=== PATIENT | female | born 1950 | race Caucasian/White ===

== ENCOUNTER → 2016-05-28 | Outpatient (CLI) | payer MEDICAID ==
[2016-04-19 11:46] VITALS: BP 128/83
[2016-05-28 15:27] LABS: CREATININE 0.73 mg/dL (0.55-1.02)
== END ==
LOC: LAB 14:55
PROVIDERS: ATTEND Orthopaedic Surgery
DX: M25.561 Pain in right knee (principal); M17.11 Unilateral primary osteoarthritis, right knee; C41.9 Malignant neoplasm of bone and articular cartilage, unspecified
CPT/HCPCS: 36415; 82565; 84520

== ENCOUNTER 2016-06-05 13:37 | Emergency (ER) | payer MEDICAID ==
[2016-06-05 13:43] VITALS: BP 144/85; BMI 25.4
[2016-06-05] MEDS ORDERED: ZOFRAN INJ 4 MG VIAL IM ONE (14:03)
[2016-06-05] MEDS ORDERED: DEMEROL INJ IM ONE (14:03)
--- NOTE | 2016-06-05 14:05 | DR.GENAD ---
HPI - PCP Primary Care Physician: DR. MATOS - HPI Comment HPI Comment: PATIENT HAVE LYMPHOMA TAKING CHEMOTHERAPY. INITIALLY 4 TIMES WEEKLY. NOW ONCE EVERY 2 MONTHS. DUE NEXT FRIDAY. RECENT FRACTURE SHOULDER, BONE METERSTASIS WAS SUSPECTED. PENDING MRI. SWELLING AND PAIN NOTED IN RIGHT LEG YESTERDAY. WORSE TODAY. NO TRAUMA. MEDICATION FOR PAIN LORTAB 5MG IS NOT RELIEVING HER PAIN. SHE IS ON COUMADIN. - Complaint/Symptoms Chief Complaint Doctors Comments: PAIN AND SWELLING RIGHT LEG AND FOOT. Chief Complaint:: PAIN IN RIGHT LEG AND FOOT IS SWOLLEN. - Nurses notes reviewed Nurses Notes Review: Yes - Source History Provided: Patient - Mode of Arrival Mode of Arrival: Wheelchair - Timing Onset of Chief Complaint: 06/04/16 Came on: Suddenly - Duration Duration: Constant Duration: Days - Severity Severity: Moderate PMH - PMH Past Medical History: Yes Past Medical History: Dyslipidemia, Hypertension Past Surgical History: Yes Surgical History: Cholecystectomy - Family History History of Family Medical Conditions: Yes Family Medical History: Hypertension - Social History Does patient currently use any type of tobacco product: No Have you used tobacco products in the last 12 months: No Type of Tobacco Use: None Does any household member use tobacco: No Alcohol Use: None Do you use any recreational Drugs:: No Lives With: Family Lives Where: Home - infectious screening In the last 2 months have you had wt loss of >10#?: NO Have you had fever, night sweats or hemotysis?: No Have you traveled outside the country in the last 6 months?: No Isolation: Standard ROS - Review of Systems Constitutional: Weakness, Fatigue. negative: Chills, Fever Eyes: No Symptoms Reported. negative: Discharge ENTM: No Symptoms Reported Respiratoy: Short of Breath (ON EXERTION) Cardiovascular: No Symptoms Reported Gastrointestinal/Abdominal: No Symptoms Reported Genitourinary: No Symptoms Reported Neurological: No Symptoms Reported Musculoskeletal: Back Pain, Leg, Knee, Ankle Integumentary: No Symptoms Reported Hematologic/Lymphatic: No Symptoms Reported Endocrine: No Symptoms Reported All Other Systems: Reviewed and Negative PE - Vital Signs Vitals: Temperature 98.2 F Pulse Rate 110 Respiratory Rate 20 Blood Pressure 144/85 O2 Sat by Pulse Oximetry 100 - General Limitations: No Limitations General Appearance: Alert - Head Head Exam: Normal Inspection - Eyes Eye exam: Normal Appearance - ENT ENT Exam: Normal External Ear Exam External Ear Exam: Normal External Inspection TM/Canal Exam: Bilateral Normal Nose Exam: Normal Nose Exam Mouth Exam: Normal Inspection Throat Exam: Normal Inspection - Neck Neck Exam: Normal Inspection - Chest Chest Inspection: Symmetric Chest Wall Rise - Respiratory Respiratory Exam: Normal Lung Sounds Bilat Respiratory Exam: Bilateral Clear to Auscultation - Cardiovascular Cardiovascular Exam: Regular Rate, Normal Rhythm, Normal Heart Sounds - Abdominal Exam Abdominal Exam: Normal Bowel Sounds, Soft. negative: Tenderness - Extremities Extremities Exam: Normal Inspection - Back Back Exam: Normal Inspection - Neurologic Neurological Exam: Alert, Oriented X3 - Psychiatric Psychiatric Exam: Anxious MDM - Additional Information Additional Information Obtained From: Family - Differential Diagnosis Differential Diagnosis: led swelling, pathologic fracture, dvt Course - Treatment Treatment: see orders. pain improve with im medications. - Consultation Consultation Comments: discus patient with oncologist dr. julio. he will see patient in am in his office. - Education/Counseling Education/Counseling: Patient, Family, Education Educated On: Treatment, Diagnosis, Needs for Follow Up ROR - Labs Reviewed Laboratory Results Reviewed?: Yes Result Diagrams: 06/05/16 14:25 06/05/16 14:25 Laboratory: WBC 7.8 X10^3/uL (3.6-10.0) 06/05/16 14:25 RBC 4.61 X10^6/uL (3.5-5.4) 06/05/16 14:25 Hgb 12.6 g/dL (12.0-16.0) 06/05/16 14:25 Hct 37.5 % (36.0-47.0) 06/05/16 14:25 MCV 81.3 fL (80.0-100.0) 06/05/16 14:25 MCH 27.2 pg (27.0-34.0) 06/05/16 14:25 MCHC 33.5 g/dL (33.0-35.0) 06/05/16 14:25 RDW 16.2 % (11.6-16.5) 06/05/16 14:25 Plt Count 143 X10^3/uL (150.0-450.0) L 06/05/16 14:25 Plt Count Comment Decreased (ADEQUATE) A 06/05/16 14:25 MPV 8.9 fL (7.4-11.0) 06/05/16 14:25 Neut % 54.2 % (42.0-75.0) 06/05/16 14:25 Lymph % 15.6 % (21.0-51.0) L 06/05/16 14:25 [place] % 27.8 % (0.0-13.0) H 06/05/16 14:25 Eos % 1.9 % (0.9-2.9) 06/05/16 14:25 Baso % 0.5 % (0.2-1.0) 06/05/16 14:25 Neut # 4.2 x10^3/uL (2.2-4.8) 06/05/16 14:25 Lymph # 1.2 X10^3/uL (1.3-2.9) L 06/05/16 14:25 [place] # 2.2 x10^3/uL (0.3-0.8) H 06/05/16 14:25 Eos # 0.1 x10^3/uL (0.0-0.2) 06/05/16 14:25 Baso # 0.0 X10^3/uL (0.0-0.1) 06/05/16 14:25 Absolute Nucleated RBC 0.1 /100WBC 06/05/16 14:25 Total Counted 100 06/05/16 14:25 Neutrophils % (Manual) 57 % (39-76) 06/05/16 14:25 Band Neutrophils % 1 % (0-10) 06/05/16 14:25 Lymphocytes % (Manual) 10 % (13-43) L 06/05/16 14:25 Monocytes % (Manual) 6 % (4-9) 06/05/16 14:25 Eosinophils % (Manual) 1 % (0-6) 06/05/16 14:25 Atypical Lymphocytes 25 06/05/16 14:25 Plt Morphology Comment Normal (NORMAL) 06/05/16 14:25 RBC Morphology Normal (NORMAL) 06/05/16 14:25 INR Target Range - 06/05/16 14:25 INR 3.12 (0.8-1.3) H 06/05/16 14:25 PTT 56.9 SECONDS (22.9-36.5) H 06/05/16 14:25 PTT Comment - 06/05/16 14:25 D-Dimer < 100 ng/mL (0-400) 06/05/16 14:25 Sodium 144 mmol/L (136-145) 06/05/16 14:25 Corrected Sodium 144 mmol/L (136-145) 06/05/16 14:25 Potassium 3.7 mmol/L (3.5-5.1) 06/05/16 14:25 Chloride 104 mmol/L (98-107) 06/05/16 14:25 Carbon Dioxide 30.4 mmol/L (21-32) 06/05/16 14:25 BUN 14 mg/dL (7-18) 06/05/16 14:25 Creatinine 0.76 mg/dL (0.55-1.02) 06/05/16 14:25 Est GFR (MDRD) Af Amer > 60 (>60) 06/05/16 14:25 Est GFR (MDRD) Non-Af > 60 (>60) 06/05/16 14:25 Glucose 118 mg/dL (65-99) H 06/05/16 14:25 Calcium 9.4 mg/dL (8.5-10.1) 06/05/16 14:25 Corrected Calcium TNP 06/05/16 14:25 Total Bilirubin 0.60 mg/dL (0.2-1.0) 06/05/16 14:25 AST 19 Units/L (15-37) 06/05/16 14:25 ALT 26 Units/L (12-78) 06/05/16 14:25 Alkaline Phosphatase 172 Units/L (46-116) H 06/05/16 14:25 Total Protein 7.1 g/dL (6.4-8.2) 06/05/16 14:25 Albumin 3.7 g/dL (3.4-5.0) 06/05/16 14:25 Globulin 3.4 g/dL (2.5-4.5) 06/05/16 14:25 Albumin/Globulin Ratio 1.1 Ratio (1.1-2.1) 06/05/16 14:25 Specimen Type Clean catch urine 06/05/16 14:16 Urine Color Yellow (YELLOW) 06/05/16 14:16 Urine Appearance Clear (CLEAR) 06/05/16 14:16 Urine pH 5.0 (5.0 - 8.0) 06/05/16 14:16 Ur Specific [place] 1.015 (1.000-1.030) 06/05/16 14:16 Urine Protein Negative (NEGATIVE) 06/05/16 14:16 Urine Glucose (UA) Negative (NEGATIVE) 06/05/16 14:16 Urine Ketones Negative (NEGATIVE) 06/05/16 14:16 Urine Occult Blood Negative (NEGATIVE) 06/05/16 14:16 Urine Nitrite Negative (NEGATIVE) 06/05/16 14:16 Urine Bilirubin Negative (NEGATIVE) 06/05/16 14:16 Urine Urobilinogen Normal (NORMAL) 06/05/16 14:16 Ur Leukocyte Esterase Negative (NEGATIVE) 06/05/16 14:16 Urine RBC None seen /HPF (NEGATIVE) 06/05/16 14:16 Urine WBC None seen /HPF (NEGATIVE) 06/05/16 14:16 Ur Squamous Epith Cells Rare /HPF (NEGATIVE) 06/05/16 14:16 Urine Bacteria Negative /HPF (NEGATIVE) 06/05/16 14:16 Ur Culture Indicated? No/not indicated 06/05/16 14:16 - XRAY XRAY Interpreted by: Radiologist XRAY Findings: report discuss with patient and her . - Diagnosis Discharge Problem: Right leg swelling, Leg pain, right, Radiolucent lesion of bone, History of lymphoma - Discharge Plan Disposition: 01 HOME, SELF-CARE Condition: Stable - Follow ups/Referrals Follow ups/Referrals: Patrick MATOS [Primary Care Provider] - 3 days - Instructions Instructions: Knee Pain, Edema, Bone Metastasis Additional Instructions: RETURN TO ED IF WORSE. SEE DR. JULIO YOUR ONCOLOGIST IN THE MORNING AT 09: 30 AM.
[2016-06-05] MEDS ORDERED: DEMEROL INJ ONE (14:07)
[2016-06-05] MEDS ORDERED: ZOFRAN INJ 4 MG VIAL ONE (14:07)
[2016-06-05 14:45] LABS: BASOPHILS % (AUTO) 0.5 % (0.2-1.0); EOSINOPHILS # (AUTO) 0.1 x10^3/uL (0.0-0.2); EOSINOPHILS % (AUTO) 1.9 % (0.9-2.9); HEMATOCRIT 37.5 % (36.0-47.0); HEMOGLOBIN 12.6 g/dL (12.0-16.0); LYMPHOCYTES # (AUTO) 1.2 X10^3/uL (1.3-2.9); LYMPHOCYTES % (AUTO) 15.6 % (21.0-51.0); MEAN CORPUSCULAR HEMOGLOBIN 27.2 pg (27.0-34.0); MEAN CORPUSCULAR HGB CONC 33.5 g/dL (33.0-35.0); MEAN CORPUSCULAR VOLUME 81.3 fL (80.0-100.0); MEAN PLATELET VOLUME 8.9 fL (7.4-11.0); MONOCYTES # (AUTO) 2.2 x10^3/uL (0.3-0.8); MONOCYTES % (AUTO) 27.8 % (0.0-13.0); NEUTROPHILS # (AUTO) 4.2 x10^3/uL (2.2-4.8); NEUTROPHILS % (AUTO) 54.2 % (42.0-75.0); PLATELET COUNT 143 X10^3/uL (150.0-450.0); RED BLOOD COUNT 4.61 X10^6/uL (3.5-5.4); RED CELL DISTRIBUTION WIDTH 16.2 % (11.6-16.5); WHITE BLOOD COUNT 7.8 X10^3/uL (3.6-10.0)
[2016-06-05 14:51] LABS: ALANINE AMINOTRANSFERASE 26 Units/L (12-78); ALBUMIN 3.7 g/dL (3.4-5.0); ALKALINE PHOSPHATASE 172 Units/L (46-116); ASPARTATE AMINO TRANSFERASE 19 Units/L (15-37); BLOOD UREA NITROGEN 14 mg/dL (7-18); CALCIUM 9.4 mg/dL (8.5-10.1); CARBON DIOXIDE 30.4 mmol/L (21-32); CHLORIDE 104 mmol/L (98-107); COR NA(FOR HYPERGLY) 144 mmol/L (136-145); CREATININE 0.76 mg/dL (0.55-1.02); GLUCOSE 118 mg/dL (65-99); SODIUM 144 mmol/L (136-145); TOTAL PROTEIN 7.1 g/dL (6.4-8.2); eGFR BLACK RACES > 60 (>60); eGFR NON BLACK RACES > 60 (>60)
[2016-06-05 15:01] LABS: D DIMER < 100 ng/mL (0-400); PLATELET MORPHOLOGY COMMENT NORMAL (NORMAL)
[2016-06-05 15:06] LABS: BAND NEUTROPHILS % 1 % (0-10)
[2016-06-05 15:10] LABS: BILIRUBIN,URINE NEGATIVE (NEGATIVE); BLOOD/HEMOGLOBIN,URINE NEGATIVE (NEGATIVE); GLUCOSE, URINE NEGATIVE (NEGATIVE); KETONES,URINE NEGATIVE (NEGATIVE); LEUKOCYTE ESTERASE ,URINE NEGATIVE (NEGATIVE); NITRITES,URINE NEGATIVE (NEGATIVE); PROTEIN,URINE NEGATIVE (NEGATIVE); UROBILINOGEN,URINE NORMAL (NORMAL)
[2016-06-05 15:16] LABS: APPEARANCE,URINE CLEAR (CLEAR); BACTERIA,URINE NEGATIVE /HPF (NEGATIVE); COLOR,URINE YELLOW (YELLOW); RBC,URINE NONE SEEN /HPF (NEGATIVE); SQUAMOUS EPITHELIAL CELL,UR RARE /HPF (NEGATIVE)
--- NOTE | 2016-06-05 15:38 | RAD ---
HISTORY: Right foot pain and swelling Study: Right foot three views Comparison: None Findings: The bones are diffusely osteopenic. There is no definite evidence for fracture, lytic, or blastic le lexus. No erosive arthritis is identified. There is mild diffuse soft tissue swelling present. The os teopenia could be due to disuse if the history states. If not the possibility of a reflex sympatheti c dystrophy could be considered. IMPRESSION: No definite acute bone or joint abnormality Diffuse osteopenia of uncertain etiology. Disuse is possible if the clinical history is consistent. If not a reflex sympathetic dystrophy is a consideration. Reported By:
--- NOTE | 2016-06-05 15:40 | RAD ---
Two views of the right foreleg Indication: Pain and swelling of right foreleg and foot. Comparison: 07/18/2015 Findings: There is cortical destruction within the medial right tibial metaphysis with moth-eaten appearance a nd heterogeneous attenuation of the right proximal meta diaphysis. Increased soft tissue density adj acent to the cortical destruction is high concerning for associated soft tissue mass. There is a curvilinear foreign body measuring approximately 15 mm within the lateral aspect of the r ight foreleg. Mild generalized soft tissue swelling is noted. Impression: 1.Cortical destruction within the medial proximal tibial metaphysis with heterogeneous marrow attenu ation within the proximal meta diaphysis and increased soft tissue attenuation within the adjacent s oft tissues is consistent with an aggressive lesion likely representing metastatic disease versus a primary bony sarcoma or lymphoma. Correlation with contrast-enhanced right foreleg MRI with small fi eld of view centered within the proximal/mid right foreleg. 2.Radiopaque foreign body within the lateral mid right foreleg. Reported By:
--- NOTE | 2016-06-05 16:34 | VAS ---
HISTORY: Pain and swelling in the right leg for 2 weeks. Study: Right lower extremity venous Doppler Comparison: None. TECHNIQUE: Real-time dynamic grayscale, color flow and complete spectral Doppler ultrasound examina tion of the major deep venous structures were obtained of the right lower extremity. FINDINGS: Right lower extremity: Real-time examination shows no evidence of thrombus within the common femora l, superficial femoral, or popliteal veins. There is normal compressibility throughout. Color flow i maging shows normal venous blood flow within the major vessels. Doppler examination shows normal navi ous waveforms with appropriate respiratory variation and augmentation. IMPRESSION: 1. Normal right lower extremity venous Doppler, without evidence of DVT. Reported By:
[2016-06-05] MEDS ORDERED: NORCO 10/325 TAB PO ONE (17:54)
[2016-06-05] MEDS ORDERED: NORCO 10/325 TAB ONE (17:54)
== END 2016-06-05 18:21 | disposition home or self-care (01) ==
LOC: ER 13:37
DX: R22.41 Localized swelling, mass and lump, right lower limb (principal); M79.604 Pain in right leg; M89.9 Disorder of bone, unspecified; Z85.72 Personal history of non-Hodgkin lymphomas; M85.80 Other specified disorders of bone density and structure, unspecified site
CPT/HCPCS: 36415; 73590; 73630; 80053; 81001; 85025; 85378; 85610; 85730; 93971; 96372; 99283; J2175; J2405